=== PATIENT | female | born 1995 | race American Indian/Alaskan Native ===

== ENCOUNTER 2018-07-11 08:58 | Emergency (ER) | payer OTHER ==
[2018-07-11 09:12] VITALS: BP 109/56
[2018-07-11] MEDS ORDERED: ALUM-MAG HYDROX-SIMETH 200-200-20MG/5ML PO ONE (10:45)
[2018-07-11] MEDS ORDERED: ZOFRAN IV ONE (10:45)
[2018-07-11] MEDS ORDERED: PEPCID IV ONE ×2 (10:59→11:02)
--- NOTE | 2018-07-11 11:04 | Emergency Department Report ---
Vomiting/Diarrhea - HPI Chief Complaint: Abdominal Pain Stated Complaint: PNEUMONIA SX Time Seen by Provider: 07/11/18 10:24 Duration: 3 Days Severity: moderate Nausea/Vomiting Severity: Moderate Diarrhea Severity: None Pain Location: Epigastric Pain Severity: Mild Symptoms: Yes Able to Tolerate Fluids Other History: Patient approximately 2 weeks ago was diagnosed with pneumonia and was placed on Z-Christian. Patient symptoms as far as the pneumonia have resolved however the patient now for the past several days has epigastric discomfort which is worse when lying flat at night. Patient feels nauseous as well but is not vomiting. Patient's been taking Motrin for pain. Patient states that after the antibiotics indicated and she began taking ibuprofen is what her epigastric discomfort began ED Review of Systems ROS: Stated complaint: PNEUMONIA SX Other details as noted in HPI Comment: All other systems reviewed and negative ED Past Medical Hx - Past Medical History Previous Medical History?: No - Surgical History Past Surgical History?: No - Social History Smoking Status: Current Every Day Smoker Substance Use Type: None - Medications Home Medications: Home Medications Medication Instructions Recorded Confirmed Last Taken Type Famotidine [Pepcid] 40 mg PO QHS #10 tablet 07/11/18 Unknown Rx Ondansetron [Zofran Odt] 4 mg PO Q8HR PRN #10 tab.rapdis 07/11/18 Unknown Rx Vomiting Diarrhea Exam - Exam General: Vital signs noted. No distress. Alert and acting appropriately. HEENT: Yes Moist Mucous Membranes, No Pharyngeal Erythema, No Pharyngeal Exudates, No Rhinorrhea, No Conjuctival Injection, No Frontal Tenderness, No Maxillary Tenderness Neck: No Adenopathy, No Rigidity Lungs: Yes Clear Lung Sounds, Yes Good Air Exchange, No Wheezes, No Stridor, No Cough, No Nasal Flaring, No Retractions, No Use of Accessory Muscles Heart exam: Regular: Yes, Murmur: No, Tachycardia: No Abdomen: Tenderness: No, Peritoneal Signs: No, Distention: No, Hyperactive Bowel sounds: No Skin exam: Rash: No, Edema: No, Normal turgor: Yes Neurologic: Alert and oriented, no deficits. Musculoskeletal: Unremarkable. ED Course Vital Signs 07/11/18 07/11/18 09:05 09:11 Temperature 98.1 F Pulse Rate 70 Respiratory 16 Rate Blood Pressure 109/56 [Left] O2 Sat by Pulse 98 Oximetry ED Medical Decision Making - Medical Decision Making Patient likely with her GERD symptoms after taking azithromycin and ibuprofen. Patient given meds for symptomatically and emergency Department be discharged home with additional medications. Patient discharged in stable condition. Critical care attestation.: If time is entered above; I have spent that time in minutes in the direct care of this critically ill patient, excluding procedure time. ED Disposition Clinical Impression: GERD (gastroesophageal reflux disease) Qualifiers: Esophagitis presence: esophagitis presence not specified Qualified Code(s): K21.9 - Gastro-esophageal reflux disease without esophagitis Gastritis Qualifiers: Gastritis type: other gastritis Chronicity: acute Gastritis bleeding: presence of bleeding unspecified Qualified Code(s): K29.00 - Acute gastritis without bl eeding Disposition: TO HOME OR SELFCARE Is pt being admited?: No Does the pt Need Aspirin: No Condition: Stable Instructions: Gastritis (ED), Diet for Ulcers and Gastritis (ED) Referrals: ASH DARLING MD [Primary Care Provider] - 3-5 Days Time of Disposition: 11:06
== END 2018-07-11 11:13 | disposition home or self-care (01) ==
LOC: ED 08:58
DX: K21.9 Gastro-esophageal reflux disease without esophagitis (principal); K29.00 Acute gastritis without bleeding; F17.200 Nicotine dependence, unspecified, uncomplicated
CPT/HCPCS: 96374; 96375; 99282; J2405